=== PATIENT | male | born 1940 | race Caucasian/White ===

== ENCOUNTER 2016-07-30 11:17 | Observation (INO) | payer OTHER ==
[~2016-07-30] VITALS: Ht 170.2 cm; Wt 84.4 kg
[~2016-07-30 11:17] MED LIST: ADULT LOW DOSE81 M1 PO; CARTIA XT120 MG PO; Cardizem CD,Cartia XT,Tiazac PO; DICLOFENAC POTA50 MG PO; FLEXERIL10 MG PO; GLIPIZIDE ER2.5 M1 PO; IRON27 MG PO; Imodium PO; KEFLEX500 MG PO; LASIX40 MG PO; LEXAPRO20 MG PO; LISINOPRIL20 MG PO; LOPRESSOR50 MG PO; LYRICA150 MG PO; LYRICA200 MG PO; Levaquin PO; MS CONTIN,ORAMO15 M1 PO; OXYCODONE HCL10 MG PO; OXYCODONE15 MG PO; PRILOSEC20 MG PO; PRINIVIL20 MG PO; TRAZODONE HCL50 MG PO; VITAMIN D31000 UNI1 PO
[2016-07-30 11:44] LABS: POINT-OF-CARE METER ID UU13113778
[2016-07-30 11:53] LABS: HEMATOCRIT 45.1 % (38.0-50.0); MCH 30.7 PG (29.0-34.0); MCHC 34.6 G/DL (30.0-36.0); MCV 88.8 FL (86-99); MEAN PLAT.VOLUME 9.4 uM^3 (9.0-12.4); PLATELET COUNT 250 K/uL (156-360); RBC DIS.WIDTH-SD 42.2 % (39-53); RED BLOOD COUNT 5.08 M/uL (4.00-5.50); WHITE BLOOD COUNT 11.5 K/uL (4.1-10.2)
[2016-07-30 12:09] LABS: CHLORIDE 103 mEq/L (99-109); POTASSIUM 3.3 mEq/L (3.7-5.4); SODIUM 143 mEq/L (136-147)
[2016-07-30 12:11] LABS: GLUCOSE 133 mg/dL (70-99)
[2016-07-30 12:12] LABS: ANION GAP 10 MEQ/L (2-14)
[2016-07-30 12:15] LABS: GFR ESTIMATE (CALCULATED) > 59 mL/min/
[2016-07-30 12:16] LABS: UREA NITROGEN (BUN) 18 mg/dL (9-23)
[2016-07-30 12:46] LABS: ADD MIUA? YES; BILIRUBIN NEGATIVE; BLOOD NEGATIVE; COLOR YELLOW ((YELLOW)); GLUCOSE (STRIP) NEGATIVE; KETONES 5; LEUKOCYTES TRACE; NITRITE NEGATIVE; PROTEIN (STRIP) 30; SPECIFIC GRAVITY 1.015 (1.000-1.030)
[2016-07-30 13:02] LABS: BACTERIA NONE SEEN /HPF; EPITHELIAL CELLS RARE /HPF; MUCUS NONE SEEN /LPF; RED BLOOD CELLS 0-5 /HPF (0-5); UCUL ADDED? NO; WHITE BLOOD CELLS 0-5 /HPF (0-5)
[2016-07-30] MEDS ORDERED: CRESTOR20 MG PO (17:58)
[2016-07-30] MEDS ORDERED: BACLOFEN10 MG PO (17:58)
[2016-07-30] MEDS ORDERED: CARTIA XT240 MG PO (17:58)
[2016-07-30] MEDS ORDERED: LO-DOSE ASPIRIN81 M2 PO (17:58)
[2016-07-30] MEDS ORDERED: FUROSEMIDE40 MG PO (17:59)
[2016-07-30] MEDS ORDERED: GABAPENTIN300 MG PO (18:00)
[2016-07-30] MEDS ORDERED: MEN 50 PLUS MU1 EACH PO (18:01)
[2016-07-30] MEDS ORDERED: LISINOPRIL20 MG PO (18:01)
[2016-07-30] MEDS ORDERED: WOMEN'S DAILY1 EACH PO (18:01)
[2016-07-30] MEDS ORDERED: OMEPRAZOLE40 M1 PO (18:02)
[2016-07-30] MEDS ORDERED: NITROSTAT0.4 MG SL (18:02)
[2016-07-30] MEDS ORDERED: RANITIDINE HCL300 MG PO (18:03)
[2016-07-30] MEDS ORDERED: TAMSULOSIN HCL0.4 MG PO (18:04)
[2016-07-30] MEDS ORDERED: VITAMIN D31000 UNIT PO (18:04)
[2016-07-30] MEDS ORDERED: TIZANIDINE HCL4 MG PO (18:05)
[2016-07-30] MEDS ORDERED: DESYREL100 MG PO (18:05)
[2016-07-30] MEDS ORDERED: XTAMPZA ER9 MG PO (18:06)
[2016-07-30] MEDS ORDERED: TYLENOL EXTRA500 MG PO (18:06)
[2016-07-30] MEDS ORDERED: VOLTAREN50 MG PO (18:06)
[2016-07-30 23:29] LABS: TOTAL BILIRUBIN 0.4 mg/dL (0.0-1.0)
[2016-07-30 23:30] LABS: ALKALINE PHOSPHATASE 91 IU/L (3-129)
[2016-07-30 23:33] LABS: DIRECT BILIRUBIN 0.2 mg/dL (0.0-0.3)
[2016-07-31 00:38] VITALS: BP 123/56
[2016-07-31 06:05] LABS: HEMATOCRIT 41.1 % (38.0-50.0); MCH 30.7 PG (29.0-34.0); MCHC 34.3 G/DL (30.0-36.0); MCV 89.5 FL (86-99); MEAN PLAT.VOLUME 9.7 uM^3 (9.0-12.4); PLATELET COUNT 232 K/uL (156-360); RBC DIS.WIDTH-CV 13.2 % (11.8-14.6); RBC DIS.WIDTH-SD 43.5 % (39-53); RED BLOOD COUNT 4.59 M/uL (4.00-5.50); WHITE BLOOD COUNT 13.9 K/uL (4.1-10.2)
[2016-07-31 07:15] LABS: CHLORIDE 107 mEq/L (99-109); POTASSIUM 3.7 mEq/L (3.7-5.4); SODIUM 142 mEq/L (136-147)
[2016-07-31 07:17] LABS: GLUCOSE 197 mg/dL (70-99)
[2016-07-31 07:18] LABS: ANION GAP 10 MEQ/L (2-14)
[2016-07-31 07:21] LABS: GFR ESTIMATE (CALCULATED) > 59 mL/min/
[2016-07-31 07:22] LABS: UREA NITROGEN (BUN) 20 mg/dL (9-23)
[2016-07-31 09:30] VITALS: BP 151/67
[2016-07-31] MEDS ORDERED: AZITHROMYCIN500 M1 PO (11:08)
[2016-07-31] MEDS ORDERED: ADVAIR HFA120 INHALA IH (11:10)
[2016-07-31] MEDS ORDERED: PROAIR HFA8.5 GM IH (11:15)
[2016-07-31 11:43] VITALS: BP 124/70
== END 2016-07-31 12:44 | disposition home or self-care (01) ==
LOC: EME 11:17 → EDOF 22:17 → 5WEST 07-31 00:15
PROVIDERS: Hospitalist
DX: G93.41 Metabolic encephalopathy (principal); E11.9 Type 2 diabetes mellitus without complications; G89.29 Other chronic pain; M54.9 Dorsalgia, unspecified; E78.5 Hyperlipidemia, unspecified; R41.82 Altered mental status, unspecified; W01.0XXA Fall on same level from slipping, tripping and stumbling without subsequent striking against object, initial encounter; Y93.01 Activity, walking, marching and hiking; M54.2 Cervicalgia; M19.90 Unspecified osteoarthritis, unspecified site; F17.210 Nicotine dependence, cigarettes, uncomplicated; E87.6 Hypokalemia; J44.1 Chronic obstructive pulmonary disease with (acute) exacerbation; R09.02 Hypoxemia; I10 Essential (primary) hypertension; Z88.6 Allergy status to analgesic agent
CPT/HCPCS: 70450; 71010; 72050; 80048; 80076; 81003; 82607; 82948; 84443; 85027; 93005; 94640; 94799; 99202; 99281; 99285; G0378; G8978 GP CI; G8979 GP CH; G8980 GP CI; J1644; J7512

== ENCOUNTER 2016-10-27 19:20 | Emergency (ER) | payer OTHER ==
[~2016-10-27] VITALS: Ht 170.2 cm; Wt 84.3 kg
[~2016-10-27 19:20] MED LIST changes: +ADVAIR HFA120 INHALA IH; +AZITHROMYCIN500 M1 PO; +BACLOFEN10 MG PO; +CARTIA XT240 MG PO; +CRESTOR20 MG PO; +DESYREL100 MG PO; +FUROSEMIDE40 MG PO; +GABAPENTIN300 MG PO; +LO-DOSE ASPIRIN81 M2 PO; +MEN 50 PLUS MU1 EACH PO; +NITROSTAT0.4 MG SL; +OMEPRAZOLE40 M1 PO; +PROAIR HFA8.5 GM IH; +RANITIDINE HCL300 MG PO; +TAMSULOSIN HCL0.4 MG PO; +TIZANIDINE HCL4 MG PO; +TYLENOL EXTRA500 MG PO; +VITAMIN D31000 UNIT PO; +VOLTAREN50 MG PO; +WOMEN'S DAILY1 EACH PO; +XTAMPZA ER9 MG PO
[2016-10-27 20:26] LABS: BASOPHIL COUNT 0.1 K/uL (0-0.1); EOSINOPHIL (%) 1.3 % (0-5); EOSINOPHIL COUNT 0.2 K/uL (0-0.3); HEMATOCRIT 40.9 % (38.0-50.0); IMMATURE GRANULOCYTE (%) 0.7 % (0.0-0.7); IMMATURE GRANULOCYTE COUNT 0.1 K/uL; INSTRUMENT ABS NEUTROPHIL CT 9.3 K/uL; LYMPHOCYTE COUNT 2.5 K/uL (1.0-2.8); MCH 30.9 PG (29.0-34.0); MCHC 34.5 G/DL (30.0-36.0); MCV 89.5 FL (86-99); MEAN PLAT.VOLUME 9.7 uM^3 (9.0-12.4); MONOCYTE (%) 5.8 % (3-12); MONOCYTE COUNT 0.7 K/uL (0-0.8); NEUTROPHIL (%) 72.5 % (45-76); NEUTROPHIL COUNT 9.3 K/uL (1.8-6.4); PLATELET COUNT 226 K/uL (156-360); RBC DIS.WIDTH-CV 12.8 % (11.8-14.6); RBC DIS.WIDTH-SD 42.2 % (39-53); RED BLOOD COUNT 4.57 M/uL (4.00-5.50); WHITE BLOOD COUNT 12.8 K/uL (4.1-10.2)
[2016-10-27 20:32] LABS: PROTHROMBIN TIME 11.5 SEC (10.2-12.9)
[2016-10-27 20:34] LABS: PTT 30.2 SEC (25-37)
[2016-10-27 20:37] LABS: CHLORIDE 111 mEq/L (99-109); POTASSIUM 3.3 mEq/L (3.7-5.4); SODIUM 145 mEq/L (136-147)
[2016-10-27 20:39] LABS: GLUCOSE 85 mg/dL (70-99)
[2016-10-27 20:40] LABS: ANION GAP 11 MEQ/L (2-14)
[2016-10-27 20:41] LABS: TOTAL BILIRUBIN 0.5 mg/dL (0.0-1.0)
[2016-10-27 20:42] LABS: ALKALINE PHOSPHATASE 97 IU/L (3-129)
[2016-10-27 20:43] LABS: GFR ESTIMATE (CALCULATED) > 59 mL/min/
[2016-10-27 20:44] LABS: DIRECT BILIRUBIN 0.2 mg/dL (0.0-0.3); UREA NITROGEN (BUN) 11 mg/dL (9-23)
[2016-10-27 20:46] LABS: LIPASE 25 U/L (1.0-51.0)
[2016-10-27 20:47] LABS: TROP-I INTERPRETATION NEGATIVE; TROPONIN-I 0.24 ng/mL (0.0-0.30)
[2016-10-27 23:40] VITALS: BP 122/91
== END 2016-10-27 23:42 | disposition home or self-care (01) ==
LOC: EME 19:20
PROVIDERS: Emergency Medicine
DX: M25.551 Pain in right hip (principal); R00.0 Tachycardia, unspecified; W10.9XXA Fall (on) (from) unspecified stairs and steps, initial encounter; T50.996A Underdosing of other drugs, medicaments and biological substances, initial encounter; Z91.120 Patient's intentional underdosing of medication regimen due to financial hardship; I48.91 Unspecified atrial fibrillation; I10 Essential (primary) hypertension; F17.200 Nicotine dependence, unspecified, uncomplicated; J44.9 Chronic obstructive pulmonary disease, unspecified; K21.9 Gastro-esophageal reflux disease without esophagitis; Z88.6 Allergy status to analgesic agent
CPT/HCPCS: 71010; 72100; 73502; 80048; 80076; 83605; 83690; 83880; 84484; 85025; 85610; 85730; 93005; 99281; 99285; J7030

== ENCOUNTER 2017-01-07 00:05 | Inpatient (IN) | payer OTHER ==
[~2017-01-07] VITALS: Ht 170.2 cm; Wt 80.2 kg
[2017-01-07 00:43] LABS: HEMATOCRIT 43.3 % (38.0-50.0); MCH 31.7 PG (29.0-34.0); MCHC 34.9 G/DL (30.0-36.0); MEAN PLAT.VOLUME 9.3 uM^3 (9.0-12.4); PLATELET COUNT 270 K/uL (156-360); RBC DIS.WIDTH-CV 13.2 % (11.8-14.6); RBC DIS.WIDTH-SD 43.8 % (39-53); RED BLOOD COUNT 4.76 M/uL (4.00-5.50); WHITE BLOOD COUNT 16.3 K/uL (4.1-10.2)
[2017-01-07 00:52] LABS: CHLORIDE 108 mEq/L (99-109); POTASSIUM 3.8 mEq/L (3.7-5.4); SODIUM 143 mEq/L (136-147)
[2017-01-07 00:55] LABS: GLUCOSE 117 mg/dL (70-99)
[2017-01-07 00:56] LABS: ANION GAP 9 MEQ/L (2-14); TOTAL BILIRUBIN 0.5 mg/dL (0.0-1.0)
[2017-01-07 00:58] LABS: ALKALINE PHOSPHATASE 111 IU/L (3-129); GFR ESTIMATE (CALCULATED) > 59 mL/min/
[2017-01-07 00:59] LABS: UREA NITROGEN (BUN) 16 mg/dL (9-23)
[2017-01-07 01:02] LABS: LIPASE 31 U/L (1.0-51.0)
[2017-01-07 01:07] LABS: TROP-I INTERPRETATION NEGATIVE; TROPONIN-I 0.05 ng/mL (0.0-0.30)
[2017-01-07] MEDS ORDERED: AUGMENTIN875 MG PO (02:55)
[2017-01-07] MEDS ORDERED: PROVENTIL HFA6.7 GM IH (02:55)
[2017-01-07] MEDS ORDERED: OXYCODONE HCL10 MG PO (09:48)
[2017-01-07] MEDS ORDERED: LASIX20 MG PO (09:50)
[2017-01-07 15:45] VITALS: BP 140/64
[2017-01-07 19:10] VITALS: BP 128/62
[2017-01-07 21:37] VITALS: BP 121/58
[2017-01-07 23:20] VITALS: BP 123/59
[2017-01-08 03:13] VITALS: BP 116/61
[2017-01-08 07:35] VITALS: BP 111/68
[2017-01-08 08:24] LABS: INTERNAL CONTROL VALID? YES
[2017-01-08 08:46] LABS: ANION GAP 7 MEQ/L (2-14); CHLORIDE 110 MEQ/L (99-109); GFR ESTIMATE (CALCULATED) > 59 mL/min/; GLUCOSE 138 mg/dL (70-99); POTASSIUM 4.3 MEQ/L (3.7-5.4); SAMPLE HEMOLYSIS CHECK 0; SAMPLE ICTERIC CHECK 0; SAMPLE LIPEMIA CHECK 0; SODIUM 142 MEQ/L (136-147); UREA NITROGEN (BUN) 17 mg/dL (9-23)
[2017-01-08 11:25] VITALS: BP 112/58
[2017-01-08 11:46] LABS: HEMATOCRIT 36.3 % (38.0-50.0); MCH 30.8 PG (29.0-34.0); MCHC 33.1 G/DL (30.0-36.0); MCV 93.3 FL (86-99); RBC DIS.WIDTH-CV 13.5 % (11.8-14.6); RBC DIS.WIDTH-SD 46.1 % (39-53); RED BLOOD COUNT 3.89 M/uL (4.00-5.50); WHITE BLOOD COUNT 19.2 K/uL (4.1-10.2)
[2017-01-08 12:14] LABS: MEAN PLAT.VOLUME 10.7 uM^3 (9.0-12.4); PLAT.SUFFICIENCY ADEQUATE; PLATELET COUNT 189 K/uL (156-360)
[2017-01-08 16:33] VITALS: BP 139/63
[2017-01-08 19:05] VITALS: BP 143/67
== END 2017-01-08 21:53 | disposition left against medical advice (07) | DRG 194 ==
LOC: EME → EDBD 00:05 → EME 00:05 → 2EAST 04:54 → EDOF 04:54 → ENRESERV 05:04 → CANRESERV 05:04 → ENRESERV 14:40 → 2EAST 15:29
PROVIDERS: Emergency Medicine; Internal Medicine; Physician Assistant
DX: J18.1 Lobar pneumonia, unspecified organism (principal); J44.1 Chronic obstructive pulmonary disease with (acute) exacerbation; J44.0 Chronic obstructive pulmonary disease with (acute) lower respiratory infection; F11.20 Opioid dependence, uncomplicated; I47.1 Supraventricular tachycardia; F17.210 Nicotine dependence, cigarettes, uncomplicated; E11.9 Type 2 diabetes mellitus without complications; G89.4 Chronic pain syndrome; I10 Essential (primary) hypertension; F32.9 Major depressive disorder, single episode, unspecified; Z83.3 Family history of diabetes mellitus; Z80.9 Family history of malignant neoplasm, unspecified; Z79.4 Long term (current) use of insulin; Z79.82 Long term (current) use of aspirin; Z79.899 Other long term (current) drug therapy; Z85.828 Personal history of other malignant neoplasm of skin; K21.9 Gastro-esophageal reflux disease without esophagitis; E86.1 Hypovolemia
CPT/HCPCS: 71020; 80048; 80053; 83605; 83690; 83880; 84484; 85027; 87040; 87070; 87205; 87449; 93005; 94640; 94640 76; 99202; 99281; 99285; J0456; J0696; J1650; J2920; J7030

== ENCOUNTER 2017-08-06 14:14 | Emergency (ER) | payer OTHER ==
[~2017-08-06] VITALS: Ht 170.2 cm; Wt 73.3 kg
[~2017-08-06 14:14] MED LIST changes: +AUGMENTIN875 MG PO; +LASIX20 MG PO; +PROVENTIL HFA6.7 GM IH
[2017-08-06 15:26] LABS: HEMATOCRIT 40.2 % (38.0-50.0); HEMOGLOBIN 14.3 G/DL (12.5-16.6); MCH 31.2 PG (29.0-34.0); MCHC 35.6 G/DL (30.0-36.0); MCV 87.8 FL (86-99); PLATELET COUNT 233 K/uL (156-360); RBC DIS.WIDTH-CV 12.3 % (11.8-14.6); RBC DIS.WIDTH-SD 39.6 % (39-53); RED BLOOD COUNT 4.58 M/uL (4.00-5.50); WHITE BLOOD COUNT 14.6 K/uL (4.1-10.2)
[2017-08-06 15:38] LABS: ALBUMIN 4.2 g/dL (3.2-4.8); CHLORIDE 104 mEq/L (99-109); SODIUM 143 mEq/L (136-147)
[2017-08-06 15:40] LABS: GLUCOSE 109 mg/dL (70-99); TOTAL PROTEIN 7.5 g/dL (6.4-8.3)
[2017-08-06 15:42] LABS: TOTAL BILIRUBIN 0.8 mg/dL (0.0-1.0)
[2017-08-06 15:44] LABS: ALKALINE PHOSPHATASE 124 IU/L (3-129); CREATININE 0.9 mg/dL (0.6-1.3); GFR ESTIMATE (CALCULATED) > 59 mL/min/ (58.99-99999)
[2017-08-06 15:45] LABS: UREA NITROGEN (BUN) 14 mg/dL (9-23)
[2017-08-06 15:46] LABS: AST (GOT) 14 IU/L (2-34)
[2017-08-06 15:47] LABS: ALT (GPT) 12 IU/L (3-49)
[2017-08-06 20:02] LABS: APPEARANCE SL.HAZY ((CLEAR)); BILIRUBIN NEGATIVE; BLOOD NEGATIVE; COLOR YELLOW ((YELLOW)); GLUCOSE (STRIP) NEGATIVE; KETONES 20; LEUKOCYTES NEGATIVE; NITRITE NEGATIVE; PROTEIN (STRIP) NEGATIVE; SPECIFIC GRAVITY 1.041 (1.000-1.030)
[2017-08-06 20:13] LABS: BACTERIA RARE /HPF; EPITHELIAL CELLS NONE SEEN /HPF; MUCUS NONE SEEN /LPF; RED BLOOD CELLS 0-5 /HPF (0-5); WHITE BLOOD CELLS 0-5 /HPF (0-5)
[2017-08-06 21:07] LABS: C DIFF TOXIN NEGATIVE (NEGATIVE)
[2017-08-06 21:59] VITALS: BP 165/79
== END 2017-08-06 22:02 | disposition home or self-care (01) ==
LOC: EME 14:14
PROVIDERS: Emergency Medicine
DX: R19.7 Diarrhea, unspecified (principal); R53.1 Weakness; G89.29 Other chronic pain; M54.9 Dorsalgia, unspecified; I10 Essential (primary) hypertension; E11.9 Type 2 diabetes mellitus without complications; J45.909 Unspecified asthma, uncomplicated; K21.9 Gastro-esophageal reflux disease without esophagitis; F17.200 Nicotine dependence, unspecified, uncomplicated; Z79.82 Long term (current) use of aspirin; Z85.828 Personal history of other malignant neoplasm of skin; Z88.6 Allergy status to analgesic agent
CPT/HCPCS: 74177; 80053; 81003; 85027; 87493; 93005; 99281; 99285; J7030